=== PATIENT | female | born 1930 | race Caucasian/White ===

== ENCOUNTER → 2017-12-17 | Outpatient (CLI) | payer MEDICARE, OTHER ==
[2014-05-12 15:14] VITALS: BP 122/69
[~2017-12-17] MED LIST: ASPI-482 PO; CHOL10003 PO; FERR325T14 PO; LEVO88TA4 PO; MELO7.5T5 PO; NITR100C62 PO; OMEP20TA63 PO; OXYC-323 PO; WARF1TAB74 PO
--- NOTE | 2017-12-17 11:56 | KCIC ---
Examination: CT maxillofacial bones without contrast HISTORY: History of hypertrophic nasal turbinates Comparison: None available Technique: Axial CT images of the maxillofacial bones were performed without contrast. Coronal and sagittal reformats are performed Exposure: One or more of the following individualized dose reduction techniques were utilized for this examination: 1. Automated exposure control 2. Adjustment of the mA and/or kV according to patient size 3. Use of iterative reconstruction technique FINDINGS: The frontal sinuses, bilateral ethmoidal sinuses are clear. There is mild mucosal thickening identified in the sphenoid sinus. The maxillary sinuses are clear. Mild hypertrophic appearance of the nasal turbinates. Bilateral tressa bullosa identified. The orbital globes appear intact. The retro-orbital fat is maintained. IMPRESSION: 1. Mild mucosal thickening identified in the sphenoid sinus. Mild hypertrophic appearance of the nasal turbinates. Bilateral tressa bullosa. Electronically signed by: Yuriy Pederson MD (12/17/2017 11:51 AM) [id number]
== END ==
LOC: KCIC CT 09:22
PROVIDERS: ATTEND Otolaryngology
DX: J34.89 Other specified disorders of nose and nasal sinuses (principal)
CPT/HCPCS: 70486

== ENCOUNTER → 2018-01-29 | Day surgery (SDC) | payer MEDICARE, OTHER ==
[~2018-01-29] MED LIST changes: +ALEN70TA5 PO; +IV RINGERS,LACTATED 1000ML 1,000 ML IV SCH; +LEVO125T5 PO; +LIDOCAINE 1% PF 2 ML VIAL. ID PRN; +LIDOCAINE 1% PF 2 ML VIAL. ONE; +MIDAZOLAM HCL/PF 2 MG/2 ML VIAL. IV PRN; +PROPOFOL 20 ML IV ONE; +fentaNYL PF VIAL 100 MCG/2 ML VIAL IV PRN
[2018-01-29 07:49] VITALS: BP 129/60
== END | disposition home or self-care (01) ==
LOC: ENDOS 06:41
PROVIDERS: ATTEND Internal Medicine Gastroenterology
DX: K22.2 Esophageal obstruction (principal); E03.9 Hypothyroidism, unspecified; K21.9 Gastro-esophageal reflux disease without esophagitis; Z88.0 Allergy status to penicillin; Z88.2 Allergy status to sulfonamides; Z88.1 Allergy status to other antibiotic agents; Z88.5 Allergy status to narcotic agent; Z88.8 Allergy status to other drugs, medicaments and biological substances; M19.90 Unspecified osteoarthritis, unspecified site; Z85.828 Personal history of other malignant neoplasm of skin; Z83.3 Family history of diabetes mellitus; Z82.49 Family history of ischemic heart disease and other diseases of the circulatory system; Z72.89 Other problems related to lifestyle; Z79.899 Other long term (current) drug therapy; Z90.49 Acquired absence of other specified parts of digestive tract; Z96.698 Presence of other orthopedic joint implants; Z98.890 Other specified postprocedural states
CPT/HCPCS: 43235; 43450; J2704